=== PATIENT | male | born 1990 | race Caucasian/White ===

== ENCOUNTER 2022-11-11 06:49 | Outpatient (CLI) | payer OTHER ==
--- NOTE | 2022-11-11 09:36 | Ultrasound Report ---
PROCEDURE: Retroperitoneal INDICATIONS: CONGENITAL ABSENCE OF VAS DEFERENS TECHNIQUE: Real-time scanning was performed of the retroperitoneal organs, with image documentation. COMPARISON: None. FINDINGS: Kidneys: Kidneys are normal in size. Right kidney measures 11.6 cm long; left kidney measures 12.3 cm long. Right renal cortical thickness is 1.3 cm; left renal cortical thickness is 1.7 cm. No raven d masses, hydronephrosis, or nephrolithiasis. Bilateral extrarenal pelvis. Bladder: Pre-void bladder volume is 414 mL. Post-void residual is 15 mL. Pre-void images demonstra te no intraluminal masses or stones. On pre-void images, bilateral ureteral jets are noted with colo r Doppler interrogation. (Of note, ureteral jets may not be detectable in up to 25% of cases due to insufficient differences in specific gravity between ureteral and bladder urine). Miscellaneous: No free abdominal fluid. IMPRESSION: Normal sonographic appearance of the kidneys. Reviewed by: Fidencio Suarez on 11/11/2022 9:35 AM PDT Approved by: Fidencio Suarez on 11/11/2022 9:35 AM PDT Station ID: [id number]
== END 2022-11-11 06:50 | disposition home or self-care (01) ==
LOC: DI 06:49
PROVIDERS: ATTEND Urology
DX: Q55.4 Other congenital malformations of vas deferens, epididymis, seminal vesicles and prostate (principal)